=== PATIENT | male | born 1940 | race Caucasian/White ===

== ENCOUNTER 2018-05-18 06:30 | Day surgery (SDC) | payer BC ==
[2018-05-10 10:35] VITALS: BMI 26.2
[2018-05-18] MEDS ORDERED: Propofol 10 mg/ml Inj (20 ML) ONE (08:08)
[2018-05-18 08:37] VITALS: TEMP 98.6
[2018-05-18 08:50] VITALS: O2SAT 98
[2018-05-18 14:31] VITALS: RESP 15
[2018-05-18 14:36] VITALS: BP 135/68; PULSE 59
== END 2018-05-18 09:40 | disposition home or self-care (01) ==
LOC: C.ENDO 06:30
PROVIDERS: ATTEND Internal Medicine Gastroenterology
DX: K21.0 Gastro-esophageal reflux disease with esophagitis (principal); B96.81 Helicobacter pylori [H. pylori] as the cause of diseases classified elsewhere; K31.819 Angiodysplasia of stomach and duodenum without bleeding; K29.70 Gastritis, unspecified, without bleeding
CPT/HCPCS: 43239; 43255; 82948; 88305; J2001; J2704; J7040

== ENCOUNTER 2018-06-29 10:52 | Day surgery (SDC) | payer BC ==
[2018-05-10 10:35] VITALS: BMI 26.2
[2018-06-29] MEDS ORDERED: Propofol 10 mg/ml Inj (20 ML) ONE ×3 (13:07→14:13)
[2018-06-29] MEDS ORDERED: Lidocaine Hydrochloride 5 ML INJ ONE (13:09)
[2018-06-29] MEDS ORDERED: Lactated Ringer's 1,000 ML IV ONE ×2 (13:38→14:17)
--- NOTE | 2018-06-29 13:40 | CP.SDSHP ---
Same Day Surgery H & P - History Proposed Procedure: colonoscopy Pre-Op Diagnosis: screening - Previous Medical/Surgical History Cardiac: Hypertension Endocrine/Metabolic: Diabetes - Allergies Allergies: Allergies No Known Allergies Allergy (Verified 06/29/18 11:18) - Physical Exam General Appearance: NAD Vital Signs: Vital Signs 06/29/18 11:00 Temperature 98 F Pulse Rate 83 Respiratory 16 Rate Blood Pressure 136/83 O2 Sat by Pulse 97 Oximetry Mental Status: Alert & Oriented x3 Neuro: WNL Heart: WNL Lungs: WNL GI: WNL - {Optional Preform as Required} Abdomen: WNL - Impression Pt. Evaluated Today:Candidate for Anesthesia & Procedure: Yes - Date & Time Date: 06/29/18 Time: 13:40 Short Stay Discharge - Short Stay Discharge Admitting Diagnosis/Reason for Visit: SCREENING Disposition: HOME/ ROUTINE
[2018-06-29 14:37] VITALS: TEMP 98.2
[2018-06-29 15:05] VITALS: O2SAT 99
[2018-06-29 15:30] VITALS: BP 121/67; PULSE 68; RESP 12
== END 2018-06-29 15:29 | disposition home or self-care (01) ==
LOC: C.ENDO 10:52
PROVIDERS: ATTEND Internal Medicine Gastroenterology
DX: Z12.11 Encounter for screening for malignant neoplasm of colon (principal); D12.2 Benign neoplasm of ascending colon; D12.3 Benign neoplasm of transverse colon; D12.5 Benign neoplasm of sigmoid colon; K64.1 Second degree hemorrhoids; E11.9 Type 2 diabetes mellitus without complications; I10 Essential (primary) hypertension; E78.5 Hyperlipidemia, unspecified; N40.0 Benign prostatic hyperplasia without lower urinary tract symptoms; Z98.890 Other specified postprocedural states; Z90.49 Acquired absence of other specified parts of digestive tract; Z98.49 Cataract extraction status, unspecified eye; Z79.84 Long term (current) use of oral hypoglycemic drugs; Z79.899 Other long term (current) drug therapy
CPT/HCPCS: 45380; 45381; 45385; 82948; 88305; J2704; J7120